=== PATIENT | male | born 1985 | race Caucasian/White ===

== ENCOUNTER 2022-08-20 12:40 | Emergency (ER) | payer OTHER ==
[~2022-08-20] VITALS: Ht 170.2 cm; Wt 87.1 kg
[2022-08-20 13:04] VITALS: BP 138/89
--- NOTE | 2022-08-20 13:13 | NUR ---
Patient ambulated with steady gait to bed 1.
[2022-08-20 14:27] LABS: BASOPHILS % (AUTO) 0.4 % (0.0-2.0); EOSINOPHILS # (AUTO) 0.1 K/uL (0-0.4); EOSINOPHILS % (AUTO) 1.6 % (0.0-4.0); HEMATOCRIT 44.7 % (36-52); HEMOGLOBIN 15.4 g/dL (12.0-18.0); LYMPHOCYTES # (AUTO) 1.8 K/uL (2.0-11.5); LYMPHOCYTES % (AUTO) 21.4 % (20.5-51.1); MEAN CORPUSCULAR HEMOGLOBIN 30 pg (27-31); MEAN CORPUSCULAR HGB CONC 34 g/dL (33-37); MEAN CORPUSCULAR VOLUME 86.9 fL (80-94); MONOCYTES # (AUTO) 0.5 K/uL (0.8-1.0); MONOCYTES % (AUTO) 6.4 % (1.7-9.3); NEUTROPHILS # (AUTO) 5.8 K/uL (1.8-7.7); NEUTROPHILS % (AUTO) 70.2 % (42.2-75.2); PLATELET COUNT (AUTO) 345 K/uL (140-450); RED BLOOD CELL COUNT(AUTO) 5.15 MIL/uL (4.20-6.10); WHITE BLOOD COUNT (AUTO) 8.3 K/uL (4.8-10.8)
[2022-08-20 14:47] LABS: ALBUMIN 3.7 g/dL (3.4-5.0); ANION GAP 11.1 (8-16); CARBON DIOXIDE 27.3 mmol/L (21-32); CREATININE 1.1 mg/dL (0.6-1.3); POTASSIUM 4.4 mmol/L (3.5-5.1); TOTAL BILIRUBIN 0.5 mg/dL (0.0-1.0)
[2022-08-20] MEDS ORDERED: MAG-27 PO (16:13)
--- NOTE | 2022-08-20 16:13 | NUR ---
PT C/O ABDOMINAL DISTENTION AND SOB INTERMITTENTLY X1 MONTH
[2022-08-20 16:24] LABS: APPEARANCE,URINE CLEAR (CLEAR); BILIRUBIN,URINE NEGATIVE (NEGATIVE); BLOOD, URINE TRACE-I (NEGATIVE); COLOR,URINE YELLOW (YELLOW); LEUKOCYTE ESTERASE ,URINE NEGATIVE (NEGATIVE); NITRITE, URINE NEGATIVE (NEGATIVE); UGLUCOSE NEGATIVE (NEGATIVE)
[2022-08-20 16:42] LABS: RBC,URINE 0-5 /HPF (0-5); WBC,URINE 0-5 /HPF (0-5)
--- NOTE | 2022-08-20 16:48 | NUR ---
Patient discharged with v/s stable. Written and verbal after care instructions given and explained. Patient verbalized understanding. Ambulatory with steady gait. All questions addressed prior to discharge. Advised to follow up with PMD.
== END 2022-08-20 16:48 | disposition home or self-care (01) ==
LOC: MED 12:40
DX: R10.9 Unspecified abdominal pain (principal)
CPT/HCPCS: 36415; 80053; 81001; 83690; 85025; 99283